=== PATIENT | male | born 1970 | race Caucasian/White ===

== ENCOUNTER → 2017-05-09 | Outpatient (CLI) | payer MEDICAID ==
[2017-05-09 17:37] LABS: TOTAL VOLUME, URINE 1950 ML
[2017-05-09 19:57] LABS: ALBUMIN 1.4 GM/DL (3.2-5.2); ANION GAP 8 MEQ/L (8-16); BLOOD UREA NITROGEN 19 MG/DL (7-18); CALCIUM LEVEL 8.2 MG/DL (8.5-10.1); CARBON DIOXIDE LEVEL 30 MEQ/L (21-32); CHLORIDE LEVEL 104 MEQ/L (98-107); CREATININE FOR GFR 2.14 MG/DL (0.70-1.30); GLOMERULAR FILTRATION RATE 35.9 (>60); GLUCOSE, FASTING 124 MG/DL (70-100); PHOSPHORUS LEVEL 6.5 MG/DL (2.5-4.9); POTASSIUM SERUM 4.8 MEQ/L (3.5-5.1); SODIUM LEVEL 142 MEQ/L (136-145)
[2017-05-09 21:12] LABS: CREATININE CLEARANCE, URINE 14.6 ML/MIN (85-125); CREATININE, SERUM 2.2 MG/DL (0.6-1.3); CREATININE, URINE 23.7 MG/DL
== END ==
LOC: M SMT 14:35
DX: N17.8 Other acute kidney failure (principal); Z99.2 Dependence on renal dialysis
CPT/HCPCS: 82575

== ENCOUNTER 2017-06-19 11:44 | Inpatient (IN) | payer OTHER, MEDICAID ==
[2017-06-19 13:30] LABS: HEMATOCRIT 37.6 % (42.0-52.0); HEMOGLOBIN 12.5 g/dl (13.5-17.5); MEAN CORPUSCULAR HEMOGLOBIN 28.2 pg (27.0-33.0); MEAN CORPUSCULAR HGB CONC 33.2 g/dl (32.0-36.5); MEAN CORPUSCULAR VOLUME 84.7 fl (80.0-96.0); PLATELET COUNT, AUTOMATED 397 10^3/uL (150-450); RED BLOOD COUNT 4.44 10^6/uL (4.30-6.10); RED CELL DISTRIBUTION WIDTH 12.8 % (11.5-14.5); WHITE BLOOD COUNT 9.1 10^3/uL (4.0-10.0)
[2017-06-19 13:37] LABS: VENOUS BASE EXCESS 0.1 (-2.0-2.0); VENOUS HCO3 27.6 MEQ/L (23.0-27.0); VENOUS PARTIAL PRESSURE CO2 57.4 mmHg (38.0-50.0); VENOUS PARTIAL PRESSURE O2 39.3 mmHg (30.0-50.0); VENOUS TOTAL CO2 29.4 MEQ/L (24.0-28.0)
[2017-06-19 13:47] LABS: ANION GAP 11 MEQ/L (8-16); BLOOD UREA NITROGEN 23 MG/DL (7-18); CALCIUM LEVEL 9.6 MG/DL (8.5-10.1); CARBON DIOXIDE LEVEL 28 MEQ/L (21-32); CHLORIDE LEVEL 81 MEQ/L (98-107); GLOMERULAR FILTRATION RATE 54.1 (>60); POTASSIUM SERUM 4.5 MEQ/L (3.5-5.1); SODIUM LEVEL 120 MEQ/L (136-145)
[2017-06-19 14:19] LABS: GLUCOSE, FASTING 876 MG/DL (70-100)
[2017-06-19] MEDS: HumuLIN R (REGULAR) INSULIN (NovoLIN R) **100U/ML** PER UNIT IV (14:30)
[2017-06-19 15:47] LABS: BEDSIDE GLUCOSE > 600 MG/DL (70-105)
[2017-06-19] MEDS ORDERED: GLUCOSE 4 GM CHEW TABLET PO (18:30)
[2017-06-19] MEDS ORDERED: ONDANSETRON 4MG/2ML VIAL (J2405) IV (18:30)
[2017-06-19] MEDS ORDERED: DEXTROSE 50% 50 ML SYRINGE IV (18:30)
[2017-06-19] MEDS ORDERED: NICOTINE 14 MG/24 HR TRANSDERMAL TD (18:30)
[2017-06-19] MEDS ORDERED: ALBUTEROL 90 MCG/ACT 8GM HFA INHALER INH (18:30)
[2017-06-19] MEDS ORDERED: GLUCAGON FOR INJ 1 MG VIAL (J1610) SC (18:30)
[2017-06-19 19:06] LABS: BEDSIDE GLUCOSE 517 MG/DL (70-105)
[2017-06-19 19:06] LABS: BEDSIDE GLUCOSE 506 MG/DL (70-105)
[2017-06-19] MEDS: NS 1,000 ML IV (19:06)
[2017-06-19] MEDS: HumaLOG INSULIN (NovoLOG) PER UNIT SC (19:06)
[2017-06-19] MEDS: LEVEMIR (INSULIN DETEMIR) 1 UNITS/0.01ML SC (19:13)
[2017-06-19 19:16] LABS: ANION GAP 11 MEQ/L (8-16); BLOOD UREA NITROGEN 23 MG/DL (7-18); CALCIUM LEVEL 10.1 MG/DL (8.5-10.1); CARBON DIOXIDE LEVEL 29 MEQ/L (21-32); CHLORIDE LEVEL 88 MEQ/L (98-107); GLOMERULAR FILTRATION RATE 58.6 (>60); POTASSIUM SERUM 3.8 MEQ/L (3.5-5.1)
[2017-06-19 19:21] LABS: ESTIMATED AVERAGE GLUCOSE 237 MG/DL (60-110); HEMOGLOBIN A1c 9.9 %
[2017-06-19 19:22] LABS: GLUCOSE, FASTING 520 MG/DL (70-100); SODIUM LEVEL 128 MEQ/L (136-145)
[2017-06-19 19:33] LABS: MAGNESIUM LEVEL 2.1 MG/DL (1.8-2.4)
[2017-06-19 19:58] LABS: FREE THYROXINE INDEX 3.3 % (1.4-3.8); T UPTAKE 38 % (33-40); THYROXINE (T4) 8.8 UG/DL (4.5-12.0)
[2017-06-19 20:01] LABS: OSMOLALITY SERUM 301 MOSM/KG (275-295)
[2017-06-19 20:18] LABS: THYROID STIMULATING HORMONE 0.449 uIU/ML (0.358-3.740)
[2017-06-19 20:22] LABS: ETHYL ALCOHOL (ETHANOL) < 0.003 % (0.000-0.010)
[2017-06-19] MEDS: HEPARIN SOD (PORCINE) 5000 UNITS/ML VIAL SC (21:00)
[2017-06-19] MEDS: ACETAMINOPHEN 500 MG TAB PO (21:00)
[2017-06-19] MEDS: DOCUSATE SODIUM 100 MG CAP PO (21:00)
[2017-06-19] MEDS ORDERED: HumaLOG INSULIN (NovoLOG) PER UNIT SC ×2 (21:00→22:00)
[2017-06-19 21:39] LABS: BEDSIDE GLUCOSE 400 MG/DL (70-105)
[2017-06-19 21:45] LABS: AMPHETAMINES LEVEL URINE NEGATIVE (NEGATIVE); BARBITURATES URINE NEGATIVE (NEGATIVE); BENZODIAZEPINES URINE NEGATIVE (NEGATIVE); CANNABINOIDS URINE NEGATIVE (NEGATIVE); COCAINE METABOLITE URINE NEGATIVE (NEGATIVE); METHADONE URINE NEGATIVE (NEGATIVE); OPIATES URINE NEGATIVE (NEGATIVE); PHENCYCLIDINE URINE NEGATIVE (NEGATIVE)
[2017-06-19] MEDS: POTASSIUM CHLORIDE 10 MEQ SR TABLET PO ×2 (21:45)
[2017-06-19] MEDS: BUPRENORPHINE/NALOXONE 8-2MG SUBLINGUAL TABLET(SUBOXONE) SL (21:46)
[2017-06-19] MEDS: METOPROLOL TART 50 MG TAB PO (21:48)
[2017-06-19 23:00] LABS: BLOOD UREA NITROGEN 20 MG/DL (7-18); CALCIUM LEVEL 9.9 MG/DL (8.5-10.1); CARBON DIOXIDE LEVEL 33 MEQ/L (21-32); CHLORIDE LEVEL 100 MEQ/L (98-107); CREATININE FOR GFR 1.23 MG/DL (0.70-1.30); GLUCOSE, FASTING 309 MG/DL (70-100); MAGNESIUM LEVEL 1.9 MG/DL (1.8-2.4)
[2017-06-19 23:09] LABS: ANION GAP 0 MEQ/L (8-16); POTASSIUM SERUM 3.1 MEQ/L (3.5-5.1); SODIUM LEVEL 133 MEQ/L (136-145)
[2017-06-20] MEDS ORDERED: KCL 40MEQ in NS 1000ML 1,000 ML IV (00:30)
[2017-06-20] MEDS ORDERED: KCL 10MEQ/100ML SWI (KRUN) 10 MEQ in APPROPRIATE DILUENT 1 EA IV (00:30)
[2017-06-20 00:32] LABS: BEDSIDE GLUCOSE 125 MG/DL (70-105)
[2017-06-20] MEDS: HumaLOG INSULIN (NovoLOG) PER UNIT SC ×6 (00:40→20:52)
[2017-06-20] MEDS: POTASSIUM CHLORIDE 10 MEQ SR TABLET PO (00:46)
[2017-06-20] MEDS: KCL 40MEQ in NS 1000ML 1,000 ML IV (00:46)
[2017-06-20 02:47] LABS: ANION GAP 6 MEQ/L (8-16); BLOOD UREA NITROGEN 19 MG/DL (7-18); CALCIUM LEVEL 9.9 MG/DL (8.5-10.1); CARBON DIOXIDE LEVEL 31 MEQ/L (21-32); CHLORIDE LEVEL 100 MEQ/L (98-107); CREATININE FOR GFR 0.91 MG/DL (0.70-1.30); GLOMERULAR FILTRATION RATE > 60.0 (>60); GLUCOSE, FASTING 52 MG/DL (70-100); MAGNESIUM LEVEL 1.9 MG/DL (1.8-2.4); POTASSIUM SERUM 3.4 MEQ/L (3.5-5.1); SODIUM LEVEL 137 MEQ/L (136-145)
[2017-06-20 03:30] LABS: BEDSIDE GLUCOSE 95 MG/DL (70-105)
[2017-06-20 04:55] LABS: HEMATOCRIT 35.4 % (42.0-52.0); MEAN CORPUSCULAR HEMOGLOBIN 28.2 pg (27.0-33.0); MEAN CORPUSCULAR HGB CONC 33.9 g/dl (32.0-36.5); MEAN CORPUSCULAR VOLUME 83.1 fl (80.0-96.0); PLATELET COUNT, AUTOMATED 339 10^3/uL (150-450); RED BLOOD COUNT 4.26 10^6/uL (4.30-6.10); RED CELL DISTRIBUTION WIDTH 12.5 % (11.5-14.5); WHITE BLOOD COUNT 10.6 10^3/uL (4.0-10.0)
[2017-06-20 05:16] LABS: ALBUMIN 3.2 GM/DL (3.2-5.2); ALBUMIN/GLOBULIN RATIO 0.73 (1.00-1.93); ALKALINE PHOSPHATASE 82 U/L (45-117); ALT/SGPT 10 U/L (12-78); ANION GAP 4 MEQ/L (8-16); AST/SGOT 12 U/L (7-37); BILIRUBIN,TOTAL 0.2 MG/DL (0.2-1.0); BLOOD UREA NITROGEN 17 MG/DL (7-18); CALCIUM LEVEL 9.7 MG/DL (8.5-10.1); CARBON DIOXIDE LEVEL 32 MEQ/L (21-32); CHLORIDE LEVEL 100 MEQ/L (98-107); CREATININE FOR GFR 0.94 MG/DL (0.70-1.30); GLOMERULAR FILTRATION RATE > 60.0 (>60); GLUCOSE, FASTING 129 MG/DL (70-100); MAGNESIUM LEVEL 1.6 MG/DL (1.8-2.4); POTASSIUM SERUM 3.9 MEQ/L (3.5-5.1); SODIUM LEVEL 136 MEQ/L (136-145); TOTAL PROTEIN 7.6 GM/DL (6.4-8.2)
[2017-06-20] MEDS: MAG SULF 1GM/100ML (MAG RUN) 1 GM in APPROPRIATE DILUENT 1 EA IV (06:18)
[2017-06-20] MEDS ORDERED: HumaLOG INSULIN (NovoLOG) PER UNIT SC (07:30)
[2017-06-20 08:06] LABS: BEDSIDE GLUCOSE 161 MG/DL (70-105)
[2017-06-20] MEDS: FOLIC ACID 1 MG TAB PO (08:31)
[2017-06-20] MEDS: THIAMINE 100 MG TAB PO (08:31)
[2017-06-20] MEDS: MULTIVITAMINS/MINERALS THERAP 1 TAB PO (08:31)
[2017-06-20] MEDS: METOPROLOL TART 50 MG TAB PO ×2 (08:32→20:20)
[2017-06-20] MEDS: BUPRENORPHINE/NALOXONE 8-2MG SUBLINGUAL TABLET(SUBOXONE) SL ×2 (08:38→20:20)
[2017-06-20] MEDS: ACETAMINOPHEN 500 MG TAB PO ×2 (08:41→20:20)
[2017-06-20] MEDS: HEPARIN SOD (PORCINE) 5000 UNITS/ML VIAL SC ×2 (08:41→20:20)
[2017-06-20] MEDS: DOCUSATE SODIUM 100 MG CAP PO ×2 (08:41→20:20)
[2017-06-20 08:57] LABS: BEDSIDE GLUCOSE > 600 MG/DL (70-105)
[2017-06-20 08:57] LABS: BEDSIDE GLUCOSE > 600 MG/DL (70-105)
[2017-06-20] MEDS ORDERED: LIDOCAINE 2% MDV 20 ML VIAL As Ordered (09:53)
[2017-06-20] MEDS: LEVEMIR (INSULIN DETEMIR) 1 UNITS/0.01ML SC (10:59)
[2017-06-20 11:43] LABS: ANION GAP 6 MEQ/L (8-16); BLOOD UREA NITROGEN 17 MG/DL (7-18); CALCIUM LEVEL 9.8 MG/DL (8.5-10.1); CARBON DIOXIDE LEVEL 30 MEQ/L (21-32); CHLORIDE LEVEL 99 MEQ/L (98-107); CREATININE FOR GFR 0.95 MG/DL (0.70-1.30); GLOMERULAR FILTRATION RATE > 60.0 (>60); GLUCOSE, FASTING 162 MG/DL (70-100); MAGNESIUM LEVEL 2.2 MG/DL (1.8-2.4); POTASSIUM SERUM 4.4 MEQ/L (3.5-5.1); SODIUM LEVEL 135 MEQ/L (136-145)
[2017-06-20 12:09] LABS: BEDSIDE GLUCOSE 141 MG/DL (70-105)
[2017-06-20 19:40] LABS: BEDSIDE GLUCOSE 153 MG/DL (70-105)
[2017-06-20 20:58] LABS: BEDSIDE GLUCOSE 160 MG/DL (70-105)
[2017-06-20] MEDS ORDERED: LEVEMIR (INSULIN DETEMIR) 1 UNITS/0.01ML SC (21:00)
[2017-06-21 06:06] LABS: HEMATOCRIT 38.3 % (42.0-52.0); HEMOGLOBIN 12.4 g/dl (13.5-17.5); MEAN CORPUSCULAR HGB CONC 32.4 g/dl (32.0-36.5); MEAN CORPUSCULAR VOLUME 86.5 fl (80.0-96.0); PLATELET COUNT, AUTOMATED 332 10^3/uL (150-450); RED BLOOD COUNT 4.43 10^6/uL (4.30-6.10); RED CELL DISTRIBUTION WIDTH 12.7 % (11.5-14.5); WHITE BLOOD COUNT 6.4 10^3/uL (4.0-10.0)
[2017-06-21 06:36] LABS: ALBUMIN/GLOBULIN RATIO 0.68 (1.00-1.93); ALKALINE PHOSPHATASE 74 U/L (45-117); ALT/SGPT 18 U/L (12-78); ANION GAP 5 MEQ/L (8-16); AST/SGOT 31 U/L (7-37); BILIRUBIN,TOTAL 0.2 MG/DL (0.2-1.0); BLOOD UREA NITROGEN 17 MG/DL (7-18); CALCIUM LEVEL 9.3 MG/DL (8.5-10.1); CARBON DIOXIDE LEVEL 30 MEQ/L (21-32); CHLORIDE LEVEL 99 MEQ/L (98-107); CREATININE FOR GFR 1.01 MG/DL (0.70-1.30); GLOMERULAR FILTRATION RATE > 60.0 (>60); GLUCOSE, FASTING 264 MG/DL (70-100); MAGNESIUM LEVEL 1.9 MG/DL (1.8-2.4); POTASSIUM SERUM 4.4 MEQ/L (3.5-5.1); SODIUM LEVEL 134 MEQ/L (136-145); TOTAL PROTEIN 7.4 GM/DL (6.4-8.2)
[2017-06-21] MEDS: BUPRENORPHINE/NALOXONE 8-2MG SUBLINGUAL TABLET(SUBOXONE) SL (07:41)
[2017-06-21] MEDS: METOPROLOL TART 50 MG TAB PO (07:41)
[2017-06-21] MEDS: THIAMINE 100 MG TAB PO (07:41)
[2017-06-21] MEDS: LEVEMIR (INSULIN DETEMIR) 1 UNITS/0.01ML SC (07:42)
[2017-06-21] MEDS: ACETAMINOPHEN 500 MG TAB PO (07:42)
[2017-06-21] MEDS: MULTIVITAMINS/MINERALS THERAP 1 TAB PO (07:42)
[2017-06-21] MEDS: FOLIC ACID 1 MG TAB PO (07:42)
[2017-06-21] MEDS: DOCUSATE SODIUM 100 MG CAP PO ×2 (07:43→11:47)
[2017-06-21] MEDS: HumaLOG INSULIN (NovoLOG) PER UNIT SC ×2 (07:43→11:53)
[2017-06-21] MEDS: HEPARIN SOD (PORCINE) 5000 UNITS/ML VIAL SC (07:43)
[2017-06-21 11:57] LABS: BEDSIDE GLUCOSE 164 MG/DL (70-105)
[2017-06-21 11:58] LABS: BEDSIDE GLUCOSE 155 MG/DL (70-105)
== END 2017-06-21 12:12 | disposition home or self-care (01) | DRG 950 ==
LOC: M MSPAV 06-20 14:37 → M ED 11:44 → M ED INP 18:30 → M ICU 21:23
PROVIDERS: Hospitalist
PROC: 02HV33Z Insertion of Infusion Device into Superior Vena Cava, Percutaneous Approach (ICD-10-PCS; principal; 2017-06-20)
PROC: 02PY33Z Removal of Infusion Device from Great Vessel, Percutaneous Approach (ICD-10-PCS; 2017-06-20)
DX: E87.1 Hypo-osmolality and hyponatremia (principal); N18.4 Chronic kidney disease, stage 4 (severe); E83.42 Hypomagnesemia; E11.65 Type 2 diabetes mellitus with hyperglycemia; I12.9 Hypertensive chronic kidney disease with stage 1 through stage 4 chronic kidney disease, or unspecified chronic kidney disease; E87.6 Hypokalemia; F17.200 Nicotine dependence, unspecified, uncomplicated; Z79.899 Other long term (current) drug therapy; I25.10 Atherosclerotic heart disease of native coronary artery without angina pectoris; Z91.19 Patient's noncompliance with other medical treatment and regimen; Z45.2 Encounter for adjustment and management of vascular access device

== ENCOUNTER → 2021-05-04 | Outpatient (CLI) | payer MEDICAID ==
[~2021-05-04] MED LIST: ADVOMIS4 XX; CALC1CAP PO; D-CA1KIT XX; FURO80TA2 PO; IPRA0.00 INH; LEVE1INJ5 SC; METO50TA7 PO; NICO14PA TD; NOVO32MI XX; OXAC10VI IJ; PROAAER10 INH; PROV108A INH; SUBO8MIS SL; TOUJ1.2I SC; TYLE500T78 PO; VITA200028 PO
== END ==
LOC: M INFU 08:22
PROVIDERS: ATTEND Internal Medicine Nephrology
DX: Z53.9 Procedure and treatment not carried out, unspecified reason (principal)

== ENCOUNTER → 2021-05-04 | Outpatient (CLI) | payer OTHER | LOC: M RAD 08:23 | PROVIDERS: ATTEND Orthopaedic Surgery | DX: M54.50 Low back pain, unspecified (principal) | CPT/HCPCS: 78315; A9503 ==